=== PATIENT | male | born 1985 | race African-American/Black ===

== ENCOUNTER 2017-01-02 05:49 | Outpatient (CLI) | payer MEDICAID | END 2017-01-02 05:50 | disposition critical access hospital (66) | LOC: EMS 05:49 | PROVIDERS: ATTEND Surgery | DX: R10.9 Unspecified abdominal pain (principal); R11.2 Nausea with vomiting, unspecified | CPT/HCPCS: A0425; A0427 ==

== ENCOUNTER 2017-01-02 06:09 | Emergency (ER) | payer MEDICAID ==
[2017-01-02 06:18] VITALS: BP 130/82
--- NOTE | 2017-01-02 06:20 | ED Physician Documentation ---
PD HPI ABD PAIN - Stated complaint Stated Complaint: RLQ PAIN - History obtained from History obtained from: Patient, EMS - History of Present Illness Timing - onset: Today Timing - details: Abrupt onset, Still present Quality: Cramping, Aching, Sharp Location: RLQ Radiation: Lower back Worsened by: Breathing, Position Associated symptoms: Nausea. No: Fever, Vomiting, Diarrhea, Constipation Similar symptoms before: Has not had sx before Recently seen: Not recently seen - Additional information Additional information: Patient is a 31 year old male with no significant past medical history who is presenting to the emergency department for right lower quadrant pain. Patient states that it woke him up from sleep and it was severe in nature. Patient states that he thought maybe he just had to go to the bathroom but the pain persisted. Patient called ems. which ems patient had three episodes of emesis and was treated with fentanyl 100mcg which help improve the pain. PD PAST MEDICAL HISTORY - Present Medications Home Medications: Ambulatory Orders Medication Instructions Recorded Confirmed No Known Home Medications [No 01/02/17 01/02/17 Known Home Medications] - Allergies Allergies/Adverse Reactions: Allergies Allergy/AdvReac Type Severity Reaction Status Date / Time amoxicillin [From Augmentin] Allergy Unknown Verified 01/02/17 06:20 clavulanic acid Allergy Unknown Verified 01/02/17 06:20 [From Augmentin] erythromycin base Allergy Unknown Verified 01/02/17 06:20 PD ED PE NORMAL - Vitals Vital signs reviewed: Yes - General General: Alert and oriented X 3, Well developed/nourished - HEENT HEENT: Atraumatic, PERRL, Pharynx benign - Neck Neck: Supple, no meningeal sign, No JVD - Cardiac Cardiac: RRR, No murmur, No rub - Respiratory Respiratory: No respiratory distress, Clear bilaterally - Derm Derm: Normal color, Warm and dry, No rash - Extremities Extremities: No deformity, Normal ROM s pain, No edema - Neuro Neuro: Alert and oriented X 3, No motor deficit, No sensory deficit, Normal speech - Psych Psych: Normal mood, Normal affect PD ED PE EXPANDED - General General: Alert, In Pain - Abdomen Abdomen: Tender to palpation, Guarding, RLQ. No: Rebound - Male Male : Normal Exam, Normal lie/cremastaric, Category Specialist present. No: Testicular Mass, Tenderness Results - Vitals Vitals: Vital Signs - 24 hr 01/02/17 06:16 Temperature 36.0 C L Heart Rate 75 Respiratory 18 Rate Blood Pressure 130/82 H O2 Saturation 99 Oxygen O2 Source Room air - Labs Labs: Laboratory Tests 01/02/17 01/02/17 01/02/17 06:30 06:30 06:30 WBC 5.5 RBC 5.11 Hgb 15.0 Hct 44.6 MCV 87.2 MCH 29.4 MCHC 33.7 RDW 13.7 Plt Count 188 MPV 7.5 Neut # 3.9 Lymph # 1.1 L [place] # 0.3 Eos # 0.1 Baso # 0.0 Absolute Nucleated RBC 0.00 Nucleated RBC % 0.1 Sodium 138 Potassium 3.6 Chloride 108 Carbon Dioxide 23 Anion Gap 7.0 BUN 12 Creatinine 0.9 Estimated GFR (MDRD) 119 Glucose 117 H Lactic Acid 1.5 Calcium 8.3 L Total Bilirubin 0.6 AST 23 ALT 35 Alkaline Phosphatase 36 L Total Protein 6.3 L Albumin 3.9 Globulin 2.4 Albumin/Globulin Ratio 1.6 Lipase 18 L PD MEDICAL DECISION MAKING - ED course Complexity details: reviewed old records, reviewed results, re-evaluated patient , considered differential, d/w patient ED course: Patient was seen and examined at bedside. Patient's pain was better controlled with the fentanyl from the field. labs were drawn and imaging was ordered. Patient was signed over to Dr. Camarena pending imaging and disposition
[2017-01-02 06:40] LABS: BASOPHILS % (AUTO) 0.7 %; EOSINOPHILS # (AUTO) 0.1 10^3/uL (0.0-0.7); EOSINOPHILS % (AUTO) 1.9 %; HCT - HEMATOCRIT 44.6 % (42.0-52.0); LYMPHOCYTES # (AUTO) 1.1 10^3/uL (1.5-3.5); LYMPHOCYTES % (AUTO) 20.2 %; MEAN CORPUSCULAR HEMOGLOBIN 29.4 pg (27.0-31.0); MEAN CORPUSCULAR HGB CONC 33.7 g/dL (32.0-36.0); MEAN CORPUSCULAR VOLUME 87.2 fL (80.0-94.0); MEAN PLATELET VOLUME 7.5 fL (7.4-11.4); MONOCYTES # (AUTO) 0.3 10^3/uL (0.0-1.0); MONOCYTES % (AUTO) 6.2 %; NEUTROPHILS # (AUTO) 3.9 10^3/uL (1.5-6.6); NUCLEATED RED BLOOD CELLS AUTO 0.1 /100WBC; RED BLOOD COUNT 5.11 10^6/uL (4.70-6.10); RED CELL DISTRIBUTION WIDTH 13.7 % (12.0-15.0); UNCORRECTED WHITE BLOOD COUNT 5.5 x10^3/uL; WHITE BLOOD COUNT 5.5 x10^3/uL (4.8-10.8)
[2017-01-02 06:52] LABS: ALBUMIN/GLOBULIN RATIO 1.6 (1.0-2.2); BILIRUBIN,TOTAL 0.6 mg/dL (0.2-1.0); CALCIUM 8.3 mg/dL (8.5-10.3); CREATININE 0.9 mg/dL (0.6-1.2); POTASSIUM 3.6 mmol/L (3.5-5.0); TOTAL PROTEIN 6.3 g/dL (6.7-8.2)
[2017-01-02] MEDS ORDERED: IOPAMIDOL-300 100 ML VIAL ONE (07:17)
[2017-01-02] MEDS ORDERED: IOPAMIDOL-300 100 ML VIAL IVP ONE (08:01)
[2017-01-02 08:16] LABS: BILIRUBIN,URINE NEGATIVE (NEGATIVE)
[2017-01-02 08:17] LABS: UA w/ MICROSCOPIC CHARGE YES
--- NOTE | 2017-01-02 08:19 | CT Preliminary Report ---
Exam: CT ABDOMEN/PELVIS W/ IMPRESSION: 1. Right kidney upper pole 2 mm nonobstructing calcification. Right kidney subcentimeter density to small to characterize. 2. Normal appendix [facility]IA SITE ID: [id number]
--- NOTE | 2017-01-02 08:21 | CT Report ---
EXAM: CT ABDOMEN AND PELVIS EXAM DATE: 01/02/2017 07:51 AM. CLINICAL HISTORY: Right lower quadrant pain. COMPARISONS: None. TECHNIQUE: Routine helical CT imaging was performed through the abdomen and pelvis. IV contrast: 100 cc Isovue-300. Enteric contrast: No. Reconstructions: Coronal and sagittal. In accordance with CT protocol optimization, one or more of the following dose reduction techniques w ere utilized for this exam: automated exposure control, adjustment of mA and/or KV based on patient s ize, or use of iterative reconstructive technique. FINDINGS: Lung Bases: Mild left basilar atelectasis Liver: Normal. No masses. Gallbladder/Bile Ducts: Unremarkable. Spleen: Normal. Pancreas: Normal. Adrenal Glands: Normal. Kidneys: Right kidney subcentimeter density too small to characterize. Upper pole 2 mm nonobstructi ng calcification. Left kidney unremarkable Peritoneal Cavity/Bowel: Normal. No free fluid, free air or adenopathy. No masses or acute inflammato ry process. The appendix is well visualized and normal. Pelvic Organs: Normal. The bladder and visualized pelvic organs are within normal limits. Vasculature: No aneurysms or other significant abnormality. Bones: No significant abnormality. Other: None. IMPRESSION: 1. Right kidney upper pole 2 mm nonobstructing calcification. Right kidney subcentimeter density to small to characterize. 2. Normal appendix RADIA Referring Provider Line: [phone] SITE ID: [id number]
--- NOTE | 2017-01-02 08:25 | ED Physician Documentation ---
PD HPI ABD PAIN - Stated complaint Stated Complaint: RLQ PAIN - Chief complaint Chief Complaint: Abd Pain PD PAST MEDICAL HISTORY - Past Medical History Past Medical History: No - Past Surgical History Past Surgical History: Yes HEENT: Tonsil/Adenoidectomy - Present Medications Home Medications: Ambulatory Orders Medication Instructions Recorded Confirmed Promethazine [Phenergan] 25 - 50 mg PO Q6H PRN #10 tab 01/02/17 oxyCODONE/ACET 5/325 [Percocet 5 1 - 2 tab PO Q4-6H PRN #15 tablet 01/02/17 mg/325 mg] - Allergies Allergies/Adverse Reactions: Allergies Allergy/AdvReac Type Severity Reaction Status Date / Time amoxicillin [From Augmentin] Allergy Unknown Verified 01/02/17 06:20 clavulanic acid Allergy Unknown Verified 01/02/17 06:20 [From Augmentin] erythromycin base Allergy Unknown Verified 01/02/17 06:20 - Social History Does the pt smoke?: Yes Smoking Status: Current every day smoker Does the pt drink ETOH?: No Does the pt have substance abuse?: No Results - Vitals Vitals: Vital Signs - 24 hr 01/02/17 06:16 Temperature 36.0 C L Heart Rate 75 Respiratory 18 Rate Blood Pressure 130/82 H O2 Saturation 99 Oxygen O2 Source Room air - Labs Labs: Laboratory Tests 01/02/17 01/02/17 01/02/17 06:30 06:30 06:30 WBC 5.5 RBC 5.11 Hgb 15.0 Hct 44.6 MCV 87.2 MCH 29.4 MCHC 33.7 RDW 13.7 Plt Count 188 MPV 7.5 Neut # 3.9 Lymph # 1.1 L [place] # 0.3 Eos # 0.1 Baso # 0.0 Absolute Nucleated RBC 0.00 Nucleated RBC % 0.1 Sodium 138 Potassium 3.6 Chloride 108 Carbon Dioxide 23 Anion Gap 7.0 BUN 12 Creatinine 0.9 Estimated GFR (MDRD) 119 Glucose 117 H Lactic Acid 1.5 Calcium 8.3 L Total Bilirubin 0.6 AST 23 ALT 35 Alkaline Phosphatase 36 L Total Protein 6.3 L Albumin 3.9 Globulin 2.4 Albumin/Globulin Ratio 1.6 Lipase 18 L Urine Color Urine Clarity Urine pH Ur Specific [place] Urine Protein Urine Glucose (UA) Urine Ketones Urine Occult Blood Urine Nitrite Urine Bilirubin Urine Urobilinogen Ur Leukocyte Esterase Urine RBC Urine WBC Ur Squamous Epith Cells Urine Bacteria Ur Microscopic Review Urine Culture Comments 01/02/17 08:00 WBC RBC Hgb Hct MCV MCH MCHC RDW Plt Count MPV Neut # Lymph # [place] # Eos # Baso # Absolute Nucleated RBC Nucleated RBC % Sodium Potassium Chloride Carbon Dioxide Anion Gap BUN Creatinine Estimated GFR (MDRD) Glucose Lactic Acid Calcium Total Bilirubin AST ALT Alkaline Phosphatase Total Protein Albumin Globulin Albumin/Globulin Ratio Lipase Urine Color YELLOW Urine Clarity CLEAR Urine pH 7.0 Ur Specific [place] 1.010 Urine Protein NEGATIVE Urine Glucose (UA) NEGATIVE Urine Ketones NEGATIVE Urine Occult Blood MODERATE H Urine Nitrite NEGATIVE Urine Bilirubin NEGATIVE Urine Urobilinogen 0.2 (NORMAL) Ur Leukocyte Esterase NEGATIVE Urine RBC 0-5 Urine WBC 0-3 Ur Squamous Epith Cells RARE Squamous Urine Bacteria None Seen Ur Microscopic Review INDICATED Urine Culture Comments NOT INDICATED - Rads (name of study) CT abd/pelvis w/ Radiology: Prelim report reviewed, EMP read contemporaneously, See rad report ( 1. Right kidney upper pole 2 mm nonobstructing calcification. Right kidney subcentimeter density too small to characterize. 2. Normal appendix.) PD MEDICAL DECISION MAKING - ED course Complexity details: reviewed results, re-evaluated patient, considered differential, d/w patient ED course: At change of shift the patient's care was turned over to me by Dr. Manzano pending CT scan of the abdomen and pelvis. Please see Dr. Manzano's note for the initial history and physical exam. On my examination the patient's abdomen is minimally tender to palpation in the right lower quadrant, with mild tenderness to percussion of the right flank. There is no rebound or guarding. CT scan of the abdomen and pelvis with IV contrast reveals a normal appendix. There is a nonobstructing 2 mm stone seen in the renal pelvis. Because of IV contrast a ureteral stone may not be observed even if present. Urinalysis does reveal microscopic hematuria. I suspect the patient's presentation is most consistent with renal colic from a nonobstructing ureteral stone. Given his clinical presentation, normal white count, and CT results, I doubt appendicitis. At the time of discharge he is pain free and without nausea. He is being discharged with prescriptions for Phenergan and for Percocet, 15 tablets. I discussed with him the diagnosis, symptomatic treatment an outpatient followup, as well as potentially worrisome signs or symptoms that should prompt reevaluation in the emergency department. Departure - Departure Disposition: 01 Home, Self Care Clinical Impression: Renal colic Condition: Stable Instructions: ED Stone Renal W Colic Follow-Up: [facility] [Provider Group] Prescriptions: oxyCODONE/ACET 5/325 [Percocet 5 mg/325 mg] 1 - 2 tab PO Q4-6H PRN #15 tablet PRN Reason: Pain Promethazine [Phenergan] 25 - 50 mg PO Q6H PRN #10 tab PRN Reason: Nausea / Vomiting Comments: Drink plenty of fluids. You can use Phenergan as prescribed if needed for nausea. You can use ibuprofen, up to 800 mg 3 times daily for its anti-inflammatory effect. You can use works as prescribed if needed for pain. Follow up with primary physician within 2 weeks. Call to schedule an appointment. Return to the emergency department if you develop increasing abdominal pain, fever, persistent vomiting, or otherwise worsening symptoms. Discharge Date/Time: 01/02/17 08:42
[2017-01-02 08:29] LABS: UR CULTURE IF IND NOT INDICATED; WBC,URINE 0-3 /HPF (0-3)
== END 2017-01-02 08:42 | disposition home or self-care (01) ==
LOC: EDSEX → ED 06:09
DX: N20.2 Calculus of kidney with calculus of ureter (principal); F17.200 Nicotine dependence, unspecified, uncomplicated
CPT/HCPCS: 36415; 74177; 80053; 81001; 83605; 83690; 85025; 99283; 99284; Q9967; 81003; 87086